=== PATIENT | male | born 1990 | race Caucasian/White ===

== ENCOUNTER 2020-03-02 17:23 | Emergency (ER) | payer SELFPAY ==
[~2020-03-02] VITALS: Ht 170.2 cm; Wt 84.0 kg
[2020-03-02] MEDS ORDERED: IBUPROFEN 600MG TABLET PO ONE (18:15)
[2020-03-02 20:19] VITALS: BP 124/65
== END 2020-03-02 20:19 | disposition home or self-care (01) ==
LOC: ER 17:29
DX: M25.512 Pain in left shoulder (principal); W01.0XXA Fall on same level from slipping, tripping and stumbling without subsequent striking against object, initial encounter; Y93.61 Activity, american tackle football; Y92.89 Other specified places as the place of occurrence of the external cause; Y99.8 Other external cause status
CPT/HCPCS: 73030; 99283